=== PATIENT | female | born 1950 | race Caucasian/White ===

== ENCOUNTER 2020-12-08 13:22 | Outpatient (CLI) | payer MEDICARE | END 2020-12-08 13:23 | disposition home or self-care (01) | LOC: BICMAMMO 13:22 | PROVIDERS: ATTEND Physician Assistant | DX: R92.8 Other abnormal and inconclusive findings on diagnostic imaging of breast (principal) | CPT/HCPCS: 77065; G0279 ==

== ENCOUNTER 2022-01-24 12:14 | Outpatient (CLI) | payer MEDICARE | END 2022-01-24 12:15 | disposition home or self-care (01) | LOC: BICMAMMO 12:14 | PROVIDERS: ATTEND Physician Assistant | DX: Z12.31 Encounter for screening mammogram for malignant neoplasm of breast (principal); Z91.89 Other specified personal risk factors, not elsewhere classified; Z80.3 Family history of malignant neoplasm of breast | CPT/HCPCS: 77063; 77067 ==

== ENCOUNTER 2023-02-24 12:47 | Outpatient (CLI) | payer MEDICARE | END 2023-02-24 12:48 | disposition home or self-care (01) | LOC: BICMAMMO 12:47 | PROVIDERS: ATTEND Physician Assistant | DX: Z12.31 Encounter for screening mammogram for malignant neoplasm of breast (principal); Z80.3 Family history of malignant neoplasm of breast; Z91.89 Other specified personal risk factors, not elsewhere classified | CPT/HCPCS: 77063; 77067 ==

== ENCOUNTER 2023-05-03 12:26 | Outpatient (CLI) | payer MEDICARE | END 2023-05-03 12:27 | disposition home or self-care (01) | LOC: BICMRI 12:26 | PROVIDERS: ATTEND Physician Assistant | DX: M25.562 Pain in left knee (principal); S83.282A Other tear of lateral meniscus, current injury, left knee, initial encounter; M94.8X8 Other specified disorders of cartilage, other site ==